=== PATIENT | female | born 1955 | race Two or more races ===

== ENCOUNTER 2022-08-24 14:40 | Emergency (ER) | payer MEDICARE, MEDICAID ==
[~2022-08-24] VITALS: Ht 162.6 cm; Wt 90.0 kg
[2022-08-24] MEDS ORDERED: ONDANSETRON HCL 4MG/2ML INJ IV STA (15:19)
[2022-08-24] MEDS ORDERED: KETOROLAC 30MG/ML VIAL IV STA (15:19)
[2022-08-24] MEDS ORDERED: SODIUM CHLORIDE 0.9% 1,000 ML IV ONE (15:30)
[2022-08-24 16:04] LABS: CHLORIDE 107 mEq/L (98-107)
[2022-08-24 16:09] VITALS: BP 140/80
[2022-08-24 16:29] LABS: BASOPHILS % 0.4 % (0.0-2.0); HEMATOCRIT. 33.2 % (36.0-48.0); HEMOGLOBIN. 11.3 g/dL (12.0-16.0); LYMPHOCYTES % 30.4 % (20.0-50.0); MEAN CORPUSCULAR HEMOGLOBIN 28.2 pg (28.0-32.0); MEAN CORPUSCULAR VOLUME 82.6 fL (81.0-99.0); MEAN PLATELET VOLUME 9.5 fl (7.4-10.4); MONOCYTES % 9.9 % (2.0-8.0); NEUTROPHILS % 55.3 % (40.0-76.0); PLATELET 240 x1000/uL (130-400); RED BLOOD CELL COUNT 4.02 mill/uL (4.2-5.4); RED CELL DISTRIBUTION WIDTH 13.8 % (11.6-14.6)
[2022-08-24] MEDS ORDERED: IBUP-2028 MT (19:15)
== END 2022-08-24 19:50 | disposition home or self-care (01) ==
LOC: EDBD 14:40 → ER 14:40
DX: M54.50 Low back pain, unspecified (principal); R07.89 Other chest pain; V49.59XA Passenger injured in collision with other motor vehicles in traffic accident, initial encounter; Y93.89 Activity, other specified; Y92.89 Other specified places as the place of occurrence of the external cause; Y99.8 Other external cause status; I10 Essential (primary) hypertension; Z88.0 Allergy status to penicillin
CPT/HCPCS: 36415; 71045; 71250; 72131; 80053; 83880; 84484; 85025; 93005; 96361; 96374; 96375; 99285; J1885; J2405; J7030

== ENCOUNTER 2024-03-29 08:39 | Inpatient (IN) | payer MEDICARE, MEDICAID ==
[~2024-03-29] VITALS: Ht 157.5 cm; Wt 78.0 kg
[~2024-03-29 08:39] MED LIST: IBUP-2028 MT
[2024-03-29] MEDS: MORPHINE SULFATE 4 MG/ML INJ (FOR IV/IM USE) IV ONE (09:35)
[2024-03-29 09:36] LABS: CHLORIDE 111 mEq/L (98-107); HEMATOCRIT 34.8 % (36.0-48.0); HEMOGLOBIN 11.3 g/dL (12.0-16.0); MEAN CORPUSCULAR HEMOGLOBIN 28.8 pg (28.0-32.0); MEAN CORPUSCULAR HGB CONC 32.5 g/dL (31.0-37.0); MEAN CORPUSCULAR VOLUME 88.5 fL (81.0-99.0); PLATELET 275 x1000/uL (130-400); RED BLOOD CELL COUNT 3.94 mill/uL (4.2-5.4); RED CELL DISTRIBUTION WIDTH 13.4 % (11.6-14.6); SODIUM 139 mEq/L (136-145); WHITE BLOOD COUNT 6.2 x1000/uL (4.5-11.0)
[2024-03-29] MEDS: ASPIRIN 325MG TABLET PO ONE (09:36)
[2024-03-29] MEDS: ONDANSETRON HCL 4MG/2ML INJ IV ONE (09:36)
[2024-03-29 09:37] LABS: CALCIUM 9.4 mg/dL (8.7-10.4); CARBON DIOXIDE 23 mEq/L (21-32)
[2024-03-29 09:42] LABS: CREATININE 0.5 mg/dL (0.6-1.0); GLUCOSE 97 mg/dL (70-105); UREA NITROGEN BLOOD 9 mg/dL (9-23)
[2024-03-29 09:44] LABS: ALANINE AMINOTRANSFERASE 21 IU/L (10-49); ALBUMIN 4.3 g/dL (3.2-4.8); ASPARTATE AMINOTRANSFERASE 12 IU/L (<34); BILIRUBIN TOTAL 0.6 mg/dL (0.1-1.0); PROTEIN TOTAL 7.2 g/dL (6.0-8.3)
[2024-03-29 09:57] LABS: TROPONIN I HIGH SENSITIVITY < 4 ng/L (3.0-34)
[2024-03-29 10:32] LABS: D-DIMER 0.53 mg/L FEU (<0.50); INR 1.1; PROTHROMBIN TIME 12.3 sec (9.6-11.0)
[2024-03-29] MEDS: ACETAMINOPHEN 325MG TABLET PO ONE (10:48)
[2024-03-29 11:14] LABS: ALANINE AMINOTRANSFERASE 18 IU/L (10-49); ALBUMIN 3.8 g/dL (3.2-4.8); ASPARTATE AMINOTRANSFERASE 11 IU/L (<34); BILIRUBIN DIRECT 0.2 mg/dL (<=3.0); BILIRUBIN TOTAL 0.5 mg/dL (0.1-1.0); PROTEIN TOTAL 6.4 g/dL (6.0-8.3)
[2024-03-29] MEDS ORDERED: HYDRALAZINE 20MG/ML VIAL IV PRN (13:30)
[2024-03-29] MEDS ORDERED: IPRATROPIUM/ALBUTEROL 0.5-3(2.5)MG/3ML NEB HHN PRN (13:30)
[2024-03-29] MEDS: METHIMAZOLE 10MG TABLET PO SCH (14:23)
[2024-03-29] MEDS: ENOXAPARIN 40MG/0.4ML SYR SUBCUT SCH (18:11)
[2024-03-29] MEDS: ACETAMINOPHEN 325MG TABLET PO PRN (18:19)
[2024-03-29 22:00] VITALS: BP 126/57; PULSE 73; RESP 20; TEMP 35.78064; O2SAT 98
[2024-03-30] MEDS: KETOROLAC 15MG/ML VIAL IV PRN (00:56)
[2024-03-30 01:58] VITALS: BP 126/57; PULSE 73; RESP 22; TEMP 35.8064
[2024-03-30] MEDS ORDERED: APIX2.5T PO (02:28)
[2024-03-30] MEDS ORDERED: ENAL2.5T69 MT (02:28)
[2024-03-30 04:00] VITALS: BP 124/49; PULSE 64; RESP 18; TEMP 36.50292; O2SAT 98
[2024-03-30 06:52] LABS: CALCIUM 9.5 mg/dL (8.7-10.4); CHLORIDE 110 mEq/L (98-107); POTASSIUM 4.3 mEq/L (3.5-5.1); SODIUM 141 mEq/L (136-145)
[2024-03-30 06:53] LABS: CARBON DIOXIDE 26 mEq/L (21-32)
[2024-03-30 06:55] LABS: CREATINE KINASE MB FRACTION < 0.5 ng/mL (0.5-3.6)
[2024-03-30 06:56] LABS: TROPONIN I HIGH SENSITIVITY 5 ng/L (3.0-34)
[2024-03-30 06:58] LABS: CREATININE 0.5 mg/dL (0.6-1.0); GLUCOSE 94 mg/dL (70-105); TRIGLYCERIDE 113 mg/dL (0-150); UREA NITROGEN BLOOD 10 mg/dL (9-23)
[2024-03-30 06:59] LABS: LDL CHOLESTEROL 98 mg/dL (5-100); THYROID STIMULATING HORMONE < 0.10 uIU/mL (0.55-4.78)
[2024-03-30 07:00] LABS: CHOLESTEROL 146 mg/dL (<200); HDL CHOLESTEROL 35 mg/dL (>65)
[2024-03-30 07:19] LABS: BASOPHILS % 0.6 % (0.0-2.0); EOSINOPHILS % 5.6 % (0.0-5.0); HEMATOCRIT. 32.7 % (36.0-48.0); HEMOGLOBIN. 10.9 g/dL (12.0-16.0); MEAN CORPUSCULAR HEMOGLOBIN 29.1 pg (28.0-32.0); MEAN CORPUSCULAR HGB CONC 33.3 g/dL (31.0-37.0); MEAN CORPUSCULAR VOLUME 87.3 fL (81.0-99.0); MEAN PLATELET VOLUME 9.1 fl (7.4-10.4); MONOCYTES % 8.2 % (2.0-8.0); NEUTROPHILS % 45.6 % (40.0-76.0); PLATELET 247 x1000/uL (130-400); RED BLOOD CELL COUNT 3.75 mill/uL (4.2-5.4); RED CELL DISTRIBUTION WIDTH 13.5 % (11.6-14.6); WHITE BLOOD COUNT 4.9 x1000/uL (4.5-11.0)
[2024-03-30 08:00] VITALS: BP 112/88; PULSE 68; RESP 20; TEMP 36.00288; O2SAT 98
[2024-03-30 11:08] LABS: CREATINE KINASE MB FRACTION < 0.5 ng/mL (0.5-3.6); TROPONIN I HIGH SENSITIVITY 4 ng/L (3.0-34)
[2024-03-30 11:10] LABS: CREATINE KINASE 30 IU/L (34-145)
[2024-03-30 12:00] VITALS: BP 126/71; PULSE 76; RESP 20; TEMP 36.44736; O2SAT 97
[2024-03-30] MEDS: FUROSEMIDE 20MG/2ML VIAL IVP NR (13:53)
[2024-03-30 16:00] VITALS: BP 126/65; PULSE 69; RESP 18; TEMP 35.5584; O2SAT 99
[2024-03-30 20:00] VITALS: BP 118/66; PULSE 72; RESP 20; TEMP 36.72516; O2SAT 100
[2024-03-31] VITALS: BP 134/56; PULSE 69; RESP 21; TEMP 35.94732; O2SAT 97
[2024-03-31 00:43] LABS: CREATINE KINASE MB FRACTION < 0.5 ng/mL (0.5-3.6)
[2024-03-31 00:44] LABS: TROPONIN I HIGH SENSITIVITY 5 ng/L (3.0-34)
[2024-03-31 00:45] LABS: CREATINE KINASE 33 IU/L (34-145)
[2024-03-31 04:00] VITALS: BP 104/56; PULSE 68; RESP 18; TEMP 36.89184; O2SAT 98
[2024-03-31] MEDS: PANTOPRAZOLE 40MG DR TABLET PO SCH (06:29)
[2024-03-31 08:00] VITALS: BP 127/85; PULSE 74; RESP 20; TEMP 36.44736; O2SAT 96
[2024-03-31 12:00] VITALS: BP 151/70; PULSE 76; RESP 18; TEMP 36.114; O2SAT 98
[2024-03-31] MEDS ORDERED: MORPHINE SULFATE 2 MG/ML INJ (NOT FOR IM USE) IV PRN (12:45)
[2024-03-31] MEDS ORDERED: NALOXONE HCL 0.4MG/ML VIAL IV PRN (13:00)
[2024-03-31 16:00] VITALS: BP 122/58; PULSE 70; RESP 18; TEMP 36.114; O2SAT 99
[2024-03-31 16:29] LABS: BASOPHILS % 0.7 % (0.0-2.0); EOSINOPHILS % 3.7 % (0.0-5.0); HEMATOCRIT. 34.4 % (36.0-48.0); HEMOGLOBIN. 11.4 g/dL (12.0-16.0); LYMPHOCYTES % 33.8 % (20.0-50.0); MEAN CORPUSCULAR HEMOGLOBIN 29.2 pg (28.0-32.0); MEAN CORPUSCULAR HGB CONC 33.1 g/dL (31.0-37.0); MEAN CORPUSCULAR VOLUME 88.4 fL (81.0-99.0); MONOCYTES % 8.3 % (2.0-8.0); NEUTROPHILS % 53.5 % (40.0-76.0); PLATELET 283 x1000/uL (130-400); RED BLOOD CELL COUNT 3.89 mill/uL (4.2-5.4); RED CELL DISTRIBUTION WIDTH 13.5 % (11.6-14.6); WHITE BLOOD COUNT 5.4 x1000/uL (4.5-11.0)
[2024-03-31] MEDS: ENOXAPARIN 80MG/0.8ML SYR SUBCUT SCH (18:09)
[2024-03-31 20:00] VITALS: BP 132/69; PULSE 89; RESP 16; TEMP 37.11408; O2SAT 97
[2024-04-01] VITALS: BP 135/70; PULSE 70; RESP 15; TEMP 36.50292; O2SAT 98
[2024-04-01] MEDS: LACTULOSE 20G/30ML UDC PO NR (00:58)
[2024-04-01 04:00] VITALS: BP 108/70; PULSE 81; RESP 18; TEMP 35.94732; O2SAT 98
[2024-04-01 08:00] VITALS: BP 136/64; PULSE 71; RESP 18; TEMP 36.50292; O2SAT 97
[2024-04-01 12:00] VITALS: BP 142/59; PULSE 70; RESP 18; TEMP 35.61396; O2SAT 97
[2024-04-01 16:00] VITALS: BP 129/54; PULSE 68; RESP 18; TEMP 36.3918; O2SAT 100
[2024-04-01 20:00] VITALS: BP 116/70; PULSE 75; RESP 16; TEMP 36.61404; O2SAT 99
[2024-04-01] MEDS: DEXT 5%/LACTATED RINGERS 1,000 ML IV SCH (23:49)
[2024-04-02] VITALS: BP 127/58; PULSE 84; RESP 18; TEMP 36.50292; O2SAT 99
[2024-04-02 04:00] VITALS: BP 111/55; PULSE 87; RESP 19; TEMP 35.89176; O2SAT 99
[2024-04-02 08:00] VITALS: BP 138/66; PULSE 75; RESP 17; TEMP 36.50292; O2SAT 97
[2024-04-02 11:50] VITALS: BP 150/65; PULSE 70; RESP 18; TEMP 36.61404; O2SAT 100
[2024-04-02 16:00] VITALS: BP 134/72; PULSE 75; RESP 18; TEMP 36.61404; O2SAT 96
[2024-04-02 20:00] VITALS: BP 139/79; PULSE 80; TEMP 37.11408
[2024-04-03] VITALS (15 sets, daily range): BP systolic 110–147; BP diastolic 47–86; PULSE 70–95; RESP 14–22; TEMP 36.114–36.6696; O2SAT 96–100
[2024-04-03] MEDS ORDERED: THROMBIN (BOVINE) 5000 UNITS/VIAL TOP ONE (06:49)
[2024-04-03] MEDS ORDERED: GENTAMICIN SULF 40MG/ML 2ML VIAL ONE (06:49)
[2024-04-03] MEDS ORDERED: LIDOCAINE HCL/EPINEPHRINE 1%-EPI 1:100,000 20ML VIAL ONE (06:49)
[2024-04-03 07:18] LABS: CALCIUM 9.3 mg/dL (8.7-10.4); CARBON DIOXIDE 25 mEq/L (21-32); CHLORIDE 109 mEq/L (98-107); POTASSIUM 4.3 mEq/L (3.5-5.1); SODIUM 140 mEq/L (136-145)
[2024-04-03 07:21] LABS: CREATININE 0.5 mg/dL (0.6-1.0)
[2024-04-03 07:23] LABS: GLUCOSE 103 mg/dL (70-105); UREA NITROGEN BLOOD 14 mg/dL (9-23)
[2024-04-03 07:31] LABS: BASOPHILS % 0.6 % (0.0-2.0); EOSINOPHILS % 4.6 % (0.0-5.0); HEMATOCRIT. 33.2 % (36.0-48.0); HEMOGLOBIN. 11.1 g/dL (12.0-16.0); LYMPHOCYTES % 31.4 % (20.0-50.0); MEAN CORPUSCULAR HEMOGLOBIN 29.2 pg (28.0-32.0); MEAN CORPUSCULAR HGB CONC 33.5 g/dL (31.0-37.0); MEAN CORPUSCULAR VOLUME 87.2 fL (81.0-99.0); MONOCYTES % 9.1 % (2.0-8.0); NEUTROPHILS % 54.3 % (40.0-76.0); PLATELET 264 x1000/uL (130-400); RED BLOOD CELL COUNT 3.81 mill/uL (4.2-5.4); RED CELL DISTRIBUTION WIDTH 13.5 % (11.6-14.6); WHITE BLOOD COUNT 5.9 x1000/uL (4.5-11.0)
[2024-04-03] MEDS: FAMOTIDINE 20MG TABLET PO SCH (08:47)
[2024-04-03] MEDS ORDERED: DEXAMETHASONE 4MG/ML 1ML VIAL ONE (11:46)
[2024-04-03] MEDS ORDERED: ONDANSETRON HCL 4MG/2ML INJ ONE (11:46)
[2024-04-03] MEDS ORDERED: CEFAZOLIN SODIUM 1000MG/VIAL ONE (11:46)
[2024-04-03] MEDS ORDERED: FENTANYL CITRATE/PF 50MCG/ML 2ML VIAL ONE ×2 (11:46→16:03)
[2024-04-03] MEDS ORDERED: PROPOFOL 200MG/20ML VIAL IV ONE (11:46)
[2024-04-03] MEDS ORDERED: ROCURONIUM BROMIDE 10MG/ML VIAL 5ML IV ONE (11:47)
[2024-04-03] MEDS ORDERED: MIDAZOLAM HCL 2 MG/2 ML VIAL ONE (11:47)
[2024-04-03] MEDS ORDERED: LIDOCAINE HCL 1% 20ML VIAL ONE (13:13)
[2024-04-03] MEDS: CLINDAMYCIN 900MG PREMIX 50 ML IV NR (14:00)
[2024-04-03] MEDS ORDERED: CEFAZOLIN SODIUM 1000MG/VIAL IV SCH (14:00)
[2024-04-03] MEDS ORDERED: HYDROMORPHONE HCL/PF 1MG/ML INJ ONE (14:06)
[2024-04-03] MEDS ORDERED: SUGAMMADEX SODIUM 200MG/2ML VIAL IV ONE (15:22)
[2024-04-03] MEDS: NICARDIPINE 100 MG in SODIUM CHLORIDE 0.9% 60 ML IV PRN (16:49)
[2024-04-03] MEDS: ONDANSETRON HCL 4MG/2ML INJ IV PRN (17:05)
[2024-04-03] MEDS: MORPHINE SULFATE 4 MG/ML INJ (FOR IV/IM USE) IV PRN (17:05)
[2024-04-03] MEDS: CLINDAMYCIN 600MG PREMIX 50 ML IV SCH (21:39)
[2024-04-03] MEDS: DEXT 5%/LACTATED RINGERS 1,000 ML IV SCH (21:40)
[2024-04-04] VITALS (28 sets, daily range): BP systolic 97–141; BP diastolic 47–100; PULSE 71–89; RESP 11–22; TEMP 36.78072–37.16964; O2SAT 97–100
[2024-04-04 05:15] LABS: BASOPHILS % 0.1 % (0.0-2.0); HEMATOCRIT. 30.6 % (36.0-48.0); HEMOGLOBIN. 10.1 g/dL (12.0-16.0); LYMPHOCYTES % 9.7 % (20.0-50.0); MEAN CORPUSCULAR HGB CONC 33.1 g/dL (31.0-37.0); MEAN CORPUSCULAR VOLUME 87.6 fL (81.0-99.0); MEAN PLATELET VOLUME 8.9 fl (7.4-10.4); MONOCYTES % 2.8 % (2.0-8.0); NEUTROPHILS % 87.4 % (40.0-76.0); PLATELET 258 x1000/uL (130-400); RED CELL DISTRIBUTION WIDTH 13.6 % (11.6-14.6); WHITE BLOOD COUNT 8.7 x1000/uL (4.5-11.0)
[2024-04-04 05:20] LABS: CARBON DIOXIDE 25 mEq/L (21-32); CHLORIDE 108 mEq/L (98-107); POTASSIUM 4.1 mEq/L (3.5-5.1); SODIUM 138 mEq/L (136-145)
[2024-04-04 05:21] LABS: CALCIUM 8.9 mg/dL (8.7-10.4)
[2024-04-04 05:26] LABS: CREATININE 0.5 mg/dL (0.6-1.0); GLUCOSE 144 mg/dL (70-105); UREA NITROGEN BLOOD 7 mg/dL (9-23)
[2024-04-04] MEDS ORDERED: METHIMAZOLE 5MG TABLET PO SCH ×2 (09:00→15:21)
[2024-04-04] MEDS: HYDROCODONE/ACETAMINOPHEN 5/325MG TABLET PO PRN (09:52)
[2024-04-04] MEDS: METHIMAZOLE 10MG TABLET PO SCH (11:37)
[2024-04-04 20:18] LABS: HEPATITIS B SURFACE ANTIGEN NEGATIVE (Negative)
[2024-04-04 20:40] LABS: HEPATITIS C AB NON REACTIVE (Neg) (Negative)
[2024-04-05] VITALS: BP 126/56; PULSE 76; RESP 16; TEMP 36.78072; O2SAT 99
[2024-04-05 04:00] VITALS: BP 127/60; PULSE 82; RESP 14; TEMP 36.83628; O2SAT 93
[2024-04-05 06:52] LABS: BASOPHILS % 0.4 % (0.0-2.0); HEMATOCRIT. 27.4 % (36.0-48.0); HEMOGLOBIN. 9.3 g/dL (12.0-16.0); LYMPHOCYTES % 27.3 % (20.0-50.0); MEAN CORPUSCULAR HEMOGLOBIN 29.7 pg (28.0-32.0); MEAN CORPUSCULAR HGB CONC 33.8 g/dL (31.0-37.0); MEAN CORPUSCULAR VOLUME 87.7 fL (81.0-99.0); MEAN PLATELET VOLUME 8.9 fl (7.4-10.4); MONOCYTES % 9.4 % (2.0-8.0); NEUTROPHILS % 61.9 % (40.0-76.0); PLATELET 212 x1000/uL (130-400); RED BLOOD CELL COUNT 3.13 mill/uL (4.2-5.4); RED CELL DISTRIBUTION WIDTH 13.5 % (11.6-14.6); WHITE BLOOD COUNT 8.5 x1000/uL (4.5-11.0)
[2024-04-05 07:09] LABS: CARBON DIOXIDE 28 mEq/L (21-32); CHLORIDE 107 mEq/L (98-107); SODIUM 141 mEq/L (136-145)
[2024-04-05 07:10] LABS: CALCIUM 8.7 mg/dL (8.7-10.4)
[2024-04-05 07:14] LABS: CREATININE 0.5 mg/dL (0.6-1.0)
[2024-04-05 07:15] LABS: GLUCOSE 95 mg/dL (70-105); UREA NITROGEN BLOOD 7 mg/dL (9-23)
[2024-04-05 08:00] VITALS: BP 132/76; PULSE 79; RESP 18; TEMP 37.05852; O2SAT 97
[2024-04-05] MEDS: METHIMAZOLE 5MG TABLET PO SCH (09:08)
[2024-04-05 12:00] VITALS: BP 126/96; PULSE 87; RESP 17; TEMP 36.89184; O2SAT 91
[2024-04-05 16:00] VITALS: BP 128/73; PULSE 100; RESP 18; TEMP 37.7808; O2SAT 94
[2024-04-05 19:30] VITALS: BP 128/75; PULSE 90; RESP 17; TEMP 36.78072; O2SAT 95
[2024-04-06] VITALS (22 sets, daily range): BP systolic 87–153; BP diastolic 21–136; PULSE 72–153; RESP 15–22; TEMP 36.44736–36.89184; O2SAT 93–98
[2024-04-06] MEDS: DILTIAZEM HCL 5MG/ML 5ML VIAL IV NR ×2 (04:02→08:12)
[2024-04-06 06:31] LABS: CARBON DIOXIDE 25 mEq/L (21-32); CHLORIDE 102 mEq/L (98-107); POTASSIUM 4.1 mEq/L (3.5-5.1); SODIUM 134 mEq/L (136-145)
[2024-04-06 06:32] LABS: CALCIUM 9.6 mg/dL (8.7-10.4)
[2024-04-06 06:36] LABS: BASOPHILS % 0.2 % (0.0-2.0); EOSINOPHILS % 0.4 % (0.0-5.0); HEMATOCRIT. 34.3 % (36.0-48.0); HEMOGLOBIN. 11.5 g/dL (12.0-16.0); LYMPHOCYTES % 19.5 % (20.0-50.0); MEAN CORPUSCULAR HEMOGLOBIN 29.3 pg (28.0-32.0); MEAN CORPUSCULAR HGB CONC 33.6 g/dL (31.0-37.0); MEAN PLATELET VOLUME 9.2 fl (7.4-10.4); MONOCYTES % 8.7 % (2.0-8.0); NEUTROPHILS % 71.2 % (40.0-76.0); PLATELET 294 x1000/uL (130-400); RED BLOOD CELL COUNT 3.94 mill/uL (4.2-5.4); RED CELL DISTRIBUTION WIDTH 13.7 % (11.6-14.6); WHITE BLOOD COUNT 10.6 x1000/uL (4.5-11.0)
[2024-04-06 06:37] LABS: CREATININE 0.5 mg/dL (0.6-1.0); GLUCOSE 120 mg/dL (70-105); UREA NITROGEN BLOOD 7 mg/dL (9-23)
[2024-04-06] MEDS ORDERED: DILTIAZEM HCL 60MG TABLET PO PRN (08:00)
[2024-04-06] MEDS ORDERED: DIGOXIN 500MCG/2ML AMP IV NR (09:15)
[2024-04-06] MEDS: AMIODARONE 200MG TABLET PO SCH (09:31)
[2024-04-06] MEDS: SODIUM CHLORIDE 0.9% 500 ML IV ONE (09:32)
[2024-04-06] MEDS ORDERED: DILTIAZEM HCL 125 MG in DEXT 5% WATER 100 ML IV SCH (10:00)
[2024-04-06] MEDS: DOCUSATE SODIUM 100MG CAPSULE PO NR (12:59)
[2024-04-06] MEDS ORDERED: NALOXONE HCL 0.4MG/ML VIAL IV PRN (14:30)
[2024-04-06] MEDS: MORPHINE SULFATE 4 MG/ML INJ (FOR IV/IM USE) IV PRN (14:48)
[2024-04-06] MEDS: DIGOXIN 500MCG/2ML AMP IV NR (14:52)
[2024-04-06] MEDS: POLYETHYLENE GLYCOL 3350 (17GM) 1 DOSE PACK PO NR (15:45)
[2024-04-06] MEDS ORDERED: AMIODARONE HCL 900 MG in DEXT 5% WATER 482 ML IV SCH (18:00)
[2024-04-06] MEDS: SENNOSIDES/DOCUSATE SOD 8.6/50MG TABLET PO SCH (21:32)
[2024-04-07] VITALS (10 sets, daily range): BP systolic 102–144; BP diastolic 46–112; PULSE 85–103; RESP 10–21; TEMP 36.50292–38.6142; O2SAT 94–98
[2024-04-07 06:23] LABS: CARBON DIOXIDE 26 mEq/L (21-32); CHLORIDE 100 mEq/L (98-107); POTASSIUM 4.1 mEq/L (3.5-5.1); SODIUM 134 mEq/L (136-145)
[2024-04-07 06:24] LABS: CALCIUM 9.4 mg/dL (8.7-10.4)
[2024-04-07 06:26] LABS: CREATININE 0.5 mg/dL (0.6-1.0)
[2024-04-07 06:29] LABS: GLUCOSE 107 mg/dL (70-105); UREA NITROGEN BLOOD 9 mg/dL (9-23)
[2024-04-07 07:20] LABS: BASOPHILS % 0.2 % (0.0-2.0); EOSINOPHILS % 1.2 % (0.0-5.0); HEMATOCRIT. 32.1 % (36.0-48.0); HEMOGLOBIN. 10.9 g/dL (12.0-16.0); LYMPHOCYTES % 13.5 % (20.0-50.0); MEAN CORPUSCULAR HEMOGLOBIN 29.5 pg (28.0-32.0); MEAN CORPUSCULAR VOLUME 86.9 fL (81.0-99.0); MEAN PLATELET VOLUME 9.5 fl (7.4-10.4); NEUTROPHILS % 75.1 % (40.0-76.0); PLATELET 262 x1000/uL (130-400); RED CELL DISTRIBUTION WIDTH 13.7 % (11.6-14.6)
[2024-04-07] MEDS: BISACODYL 10MG SUPP PR NR (15:45)
[2024-04-07] MEDS: NA PHOS,M-B/NA PHOS,DI-BA ENEMA 118ML PR NR (21:15)
[2024-04-07] MEDS: ACETAMINOPHEN 325MG TABLET PO PRN (21:27)
[2024-04-08] VITALS (12 sets, daily range): BP systolic 91–122; BP diastolic 47–75; PULSE 74–94; RESP 14–25; TEMP 36.50292–37.16964; O2SAT 91–98
[2024-04-08] MEDS ORDERED: NA PHOS,M-B/NA PHOS,DI-BA ENEMA 118ML PR PRN (09:45)
[2024-04-08] MEDS: SENNOSIDES/DOCUSATE SOD 8.6/50MG TABLET PO SCH (10:01)
[2024-04-08] MEDS: POLYETHYLENE GLYCOL 3350 (17GM) 1 DOSE PACK PO SCH (10:01)
[2024-04-08] MEDS: TRAMADOL HCL/ACETAMINOPHEN 37.5/325MG TABLET PO PRN (21:20)
[2024-04-09] VITALS (8 sets, daily range): BP systolic 107–119; BP diastolic 56–96; PULSE 69–93; RESP 13–21; TEMP 36.16956–37.00296; O2SAT 93–99
[2024-04-09] MEDS: MAGNESIUM HYDROXIDE 400MG/5ML 30ML UDC PO PRN (00:10)
== END 2024-04-09 20:55 | DRG 460 ==
LOC: ER 08:54 → 5WST 11:24 → EDBEDREQ 11:31 → EDBEDREQTM 11:31 → 8WST 20:49 → MICUSO 04-03 16:54 → 3WST 04-04 14:29 → 5EST 04-06 19:08
PROVIDERS: ADMIT Internal Medicine; ATTEND Internal Medicine
PROC: 0SG0071 Fusion of Lumbar Vertebral Joint with Autologous Tissue Substitute, Posterior Approach, Posterior Column, Open Approach (ICD-10-PCS; principal; 2024-04-03)
PROC: 07DS0ZZ Extraction of Vertebral Bone Marrow, Open Approach (ICD-10-PCS; 2024-04-03)
DX: M47.816 Spondylosis without myelopathy or radiculopathy, lumbar region (principal); G82.20 Paraplegia, unspecified; I47.19 Other supraventricular tachycardia; M48.56XA Collapsed vertebra, not elsewhere classified, lumbar region, initial encounter for fracture; I20.9 Angina pectoris, unspecified; E05.90 Thyrotoxicosis, unspecified without thyrotoxic crisis or storm; D64.9 Anemia, unspecified; M43.16 Spondylolisthesis, lumbar region; E03.9 Hypothyroidism, unspecified; M48.07 Spinal stenosis, lumbosacral region; I11.0 Hypertensive heart disease with heart failure; I48.0 Paroxysmal atrial fibrillation; M25.78 Osteophyte, vertebrae; Z79.01 Long term (current) use of anticoagulants; Z88.0 Allergy status to penicillin
CPT/HCPCS: 36415; 71045; 72100; 72148; 73502; 76000; 80048; 80053; 80061; 80076; 82550; 82553; 83735; 83880; 84100; 84443; 84484; 85025; 85027; 85379; 86705; 86850; 86900; 87340; 93005; 93306; 93970; 95925; 95926; 95928; 95929; 97162; 97164; 97166; 97168; 97530; 97760; 99285; C1893; J0282; J0690; J1100; J1160; J1170; J1580; J1650; J1885; J1940; J2250; J2270; J2405; J2704; J3010; J3490; J7060; J7121; C1713